=== PATIENT | female | born 1965 | race Caucasian/White ===

== ENCOUNTER 2017-01-12 14:33 | Observation (INO) ==
[2017-01-12] MEDS ORDERED: SALINE FLUSH 10ml SYRINGE IVF PRN (14:56)
--- NOTE | 2017-01-12 14:57 | Emergency Department Report ---
General Adult HPI - General Chief complaint: Abdominal Pain Stated complaint: gallbladder pain,vomiting. Time Seen by Provider: 01/12/17 14:42 Source: patient Mode of arrival: ambulatory Limitations: no limitations - History of Present Illness HPI narrative: 51-year-old female presents to the emergency department with a chief complaint of right upper quadrant abdominal pain. Patient has been experiencing these symptoms for the past several weeks. She describes her pain as mild. Pain is dull. No radiation. She also notes nausea. She notes increase in symptoms with eating. Patient states she is scheduled with Dr. Jona Pires to have her gallbladder out in February but states that she cannot wait that long. She has no other complaints or associated symptoms. Symptoms have been persistent in nature since onset. She denies trauma, travel, poorly prepared food, or recent antibiotic use. - Related Data Home Medications Medication Instructions Recorded Confirmed Acetaminophen [Acetaminophen Extra 1,000 mg PO Q6H PRN 01/12/17 01/12/17 Strength] Furosemide [Lasix] 40 mg PO BID 01/12/17 01/12/17 Metolazone [Zaroxolyn] 5 mg PO MOWEFR 01/12/17 01/12/17 Potassium Chloride 20 meq PO BID 01/12/17 01/12/17 Potassium Chloride 20 meq PO TID 01/12/17 01/12/17 Allergies Allergy/AdvReac Type Severity Reaction Status Date / Time No Known Allergies Allergy Verified 01/12/17 14:37 Review of Systems Constitutional: Denies: fever, chills Eyes: Denies: eye pain, vision change ENT: Denies: ear pain, throat pain Cardiovascular: Denies: chest pain, palpitations Respiratory: Denies: cough, dyspnea Gastrointestinal: Reports: abdominal pain, nausea. Denies: vomiting, diarrhea Genitourinary: Denies: urgency, dysuria Musculoskeletal: Denies: back pain, arthralgia Integumentary: Denies: erythema, rash Neurological: Denies: headache, numbness Psychiatric: Denies: anxiety, depression Endocrine: Denies: fatigue, heat or cold intolerance Hematological/Lymphatic: Denies: easy bleeding, easy bruising Allergic/Immunologic: Denies: facial swelling, urticaria PFSH Patient Stated Medical History Other GI Yes: GALLBLADDER DISEASE Surgical History: Hysterectomy Family History: Reviewed and noncontributory. - Social History Smoking status: Former smoker Substance use type: does not use Alcohol intake frequency: does not drink Physical Exam - Limitations Limitations: no limitations - General General appearance: alert, in no apparent distress - Normal Exams: Head:: Normocephalic without trauma Eyes:: Pupils are PERRLA w/ EOMI, No scleral icterus, irritation, or foreign bodies noted ENMT:: No facial trauma, nasal exudates, pharyngeal erythema, or exudates are noted Dental: No fractured, loose, or missing teeth noted Neck:: Full range of motion, without adenopathy, JVD, bruits or thyromegaly Chest/Respirations:: Clear all medrano, with good airflow, and symmetry bilaterally Cardiovascular:: Regular rate and rhythm, without murmur or gallop, Pulses 2+ all extremities, capillary refill, <2 seconds all extremities Abdomen:: Bowel sounds positive (Soft. Mild RUQ tenderness to palpation. No rebound or guarding. NO CVAT. ), non-distended, no hepatosplenomegaly, masses or bruits noted Lymphatic:: No lymphadenopathy, or lymphedema noted Musculoskeletal:: No tenderness, or deformity noted, good range of motion, all extremities Integumentary:: No rashes, hives, or bruising noted, hair and nails, without abnormality Neurological:: Patient is alert, and oriented, cranial nerves, motor/sensory/ cerebellar, exams w/o gross deficits, to observation Psychiatric:: Patient exhibits, appropriate attention, emotion and affect Course Vital Signs Temperature 98.9 F 01/12/17 14:37 Pulse Rate 92 01/12/17 14:37 Respiratory Rate 19 01/12/17 14:37 Blood Pressure 144/79 H 01/12/17 14:37 Pulse Oximetry 97 01/12/17 14:37 Temperature 98.9 F 01/12/17 14:37 Pulse Rate 90 01/12/17 16:48 Respiratory Rate 19 01/12/17 16:48 Blood Pressure 144/67 H 01/12/17 17:15 Pulse Oximetry 98 01/12/17 16:48 Medical Decision Making - [facility] Narrative Medical decision making narrative: Labs/imaging were discussed in detail with the patient and questions are answered. Patient is given 40 mEq of potassium by mouth times one. Potassium riders are ordered. Patient declines offered analgesic pain medication in the emergency Department. Patient declines offered antiemetic medication in the emergency department. Patient is to be admitted to the service of the hospitalist Dr. Little for severe hypokalemia. Patient is reviewed with Dr. Snyder of general surgery who agrees that the patient has cholelithiasis and not acute cholecystitis. Patient is in agreement with the current plan of management. Patient is admitted to the hospital in improved condition. No further orders from accepting or consulting physicians who were in agreement with the current plan of management. - Differential Diagnosis cholelithiasis, acute cholecystitis, pancreatitis, metabolic disorder - Lab Data Result diagrams: 01/12/17 15:09 01/12/17 15:09 Lab Results 01/12/17 01/12/17 01/12/17 Range/Units 15:09 15:09 15:09 WBC 5.4 (4.5-11.0) T/MM3 RBC 5.07 (4.00-5.20) M/MM3 Hgb 14.0 (12-16) GM/DL Hct 42.7 (36-46) % MCV 84.2 (80-100) UM3 MCH 27.6 (26-34) UUG MCHC 32.8 (31-37) GM/DL RDW Std Deviation 43.8 (36.9-50.2) FL Plt Count 231 (130-400) T/MM3 MPV 10.8 (9.4-12.4) UM3 Immature Gran % (Auto) 0.4 (0.0-0.5) % Neut % (Auto) 65.6 (33-66) % Lymph % (Auto) 23.7 (23-45) % [place] % (Auto) 9.0 (0-9.0) % Eos % (Auto) 0.7 (0-4) % Baso % (Auto) 0.6 (0-2) % Neut # (Auto) 3.5 (1.8-7.7) T/MM3 Lymph # (Auto) 1.3 (1-4.8) T/MM3 [place] # (Auto) 0.5 (0-0.8) T/MM3 Eos # (Auto) 0.0 (0-0.5) T/MM3 Baso # (Auto) 0.0 (0-0.2) T/MM3 Abs Immat Gran (auto) 0.02 (0.00-0.03) T/MM3 Turbidity < 20 (0-20) Sodium 138 (134-144) MEQ/L Potassium 2.4 L* (3.6-5) MEQ/L Chloride 87 L (98-107) MEQ/L Carbon Dioxide 41 H* (22-30) MEQ/L Anion Gap 10 (5-15) MEQ/L BUN 12.0 (7-17) MG/DL Creatinine 0.9 (0.7-1.2) MG/DL GFR Calculation 66 BUN/Creatinine Ratio 13 (6-26) RATIO Glucose 131 H (65-110) MG/DL Calculated Osmolality 268 (261-280) MOSM/KG Calcium 9.5 (8.4-10.2) MG/DL Total Bilirubin 0.50 (0.20-1.30) MG/DL Icterus Index < 2 (0-7) AST 36 (14-36) U/L ALT 70 H (9-52) U/L Alkaline Phosphatase 86 (38-126) U/L Troponin I (0-0.12) ng/ml Total Protein 7.8 (6.3-8.2) G/DL Albumin 4.0 (3.5-5.0) G/DL Globulin 3.8 H (2.4-3.6) G/DL Albumin/Globulin Ratio 1.1 (1.1-2.2) RATIO Lipase 127 (23-300) U/L Specimen Hemolysis < 15 (0-25) Ur Collection Type Urine, clean catch Urine Color Yellow (YELLOW) Urine Clarity Clear Urine pH 6.5 (5.0-8.0) Ur Specific [place] 1.010 L (1.015-1.025) Urine Protein Negative (NEGATIVE) Urine Glucose (UA) Negative (NEGATIVE) Urine Ketones Negative (NEGATIVE) Urine Occult Blood Negative (NEGATIVE) Urine Nitrate Negative (NEGATIVE) Urine Bilirubin Negative (NEGATIVE) Urine Urobilinogen 0.2 (NORMAL) EU/DL Ur Leukocyte Esterase Negative (NEGATIVE) Urinalysis Comment Microscopic not ind. 01/12/17 Range/Units 15:09 WBC (4.5-11.0) T/MM3 RBC (4.00-5.20) M/MM3 Hgb (12-16) GM/DL Hct (36-46) % MCV (80-100) UM3 MCH (26-34) UUG MCHC (31-37) GM/DL RDW Std Deviation (36.9-50.2) FL Plt Count (130-400) T/MM3 MPV (9.4-12.4) UM3 Immature Gran % (Auto) (0.0-0.5) % Neut % (Auto) (33-66) % Lymph % (Auto) (23-45) % [place] % (Auto) (0-9.0) % Eos % (Auto) (0-4) % Baso % (Auto) (0-2) % Neut # (Auto) (1.8-7.7) T/MM3 Lymph # (Auto) (1-4.8) T/MM3 [place] # (Auto) (0-0.8) T/MM3 Eos # (Auto) (0-0.5) T/MM3 Baso # (Auto) (0-0.2) T/MM3 Abs Immat Gran (auto) (0.00-0.03) T/MM3 Turbidity (0-20) Sodium (134-144) MEQ/L Potassium (3.6-5) MEQ/L Chloride (98-107) MEQ/L Carbon Dioxide (22-30) MEQ/L Anion Gap (5-15) MEQ/L BUN (7-17) MG/DL Creatinine (0.7-1.2) MG/DL GFR Calculation BUN/Creatinine Ratio (6-26) RATIO Glucose (65-110) MG/DL Calculated Osmolality (261-280) MOSM/KG Calcium (8.4-10.2) MG/DL Total Bilirubin (0.20-1.30) MG/DL Icterus Index (0-7) AST (14-36) U/L ALT (9-52) U/L Alkaline Phosphatase (38-126) U/L Troponin I < 0.012 (0-0.12) ng/ml Total Protein (6.3-8.2) G/DL Albumin (3.5-5.0) G/DL Globulin (2.4-3.6) G/DL Albumin/Globulin Ratio (1.1-2.2) RATIO Lipase (23-300) U/L Specimen Hemolysis < 15 (0-25) Ur Collection Type Urine Color (YELLOW) Urine Clarity Urine pH (5.0-8.0) Ur Specific [place] (1.015-1.025) Urine Protein (NEGATIVE) Urine Glucose (UA) (NEGATIVE) Urine Ketones (NEGATIVE) Urine Occult Blood (NEGATIVE) Urine Nitrate (NEGATIVE) Urine Bilirubin (NEGATIVE) Urine Urobilinogen (NORMAL) EU/DL Ur Leukocyte Esterase (NEGATIVE) Urinalysis Comment - Radiology Data RUQ Ultrasound - cholelithiasis otherwise unremarkable examination. - EKG Data EKG #1 EKG results narrative: Sinus rhythm. 84 bpm. No STEMI. Disposition Clinical Impression: Hypokalemia Cholelithiasis Qualifiers: Cholelithiasis location: gallbladder Cholecystitis acuity: chronic Biliary obstruction: without biliary obstruction Disposition: 02 To [facility] Condition: Improved Prescriptions: No Action Potassium Chloride 20 meq PO TID Potassium Chloride 20 meq PO BID Metolazone [Zaroxolyn] 5 mg PO MOWEFR Furosemide [Lasix] 40 mg PO BID Acetaminophen [Acetaminophen Extra Strength] 1,000 mg PO Q6H PRN PRN Reason: Pain Referrals: Andrew Richardson MD [Physician] - Time of Disposition: 17:00 (Admit. Dr. Little. ) - Seen By: physician
--- OUTSIDE RECORDS SUMMARY | 2017-01-12 15:08 | External Medical Summary ---
:1965 Author Organization [employer] Care Team Providers Name Role Phone Andrew Richardson Provider Role Unavailable Allergies No Known Allergies Problems Problem Type Condition ICD-9 Code Onset Dates Condition Status Problem Unspecified acute nonsuppurative 381.00 Active otitis media Problem Acute pharyngitis 462 Active Problem Hyperpotassemia 276.7 Active Problem Asymptomatic postmenopausal V49.81 Active status (age-related) (natural) Problem Need for prophylactic V04.81 Active vaccination and inoculation, Influenza Problem Swelling of limb 729.81 Active Problem Morbid obesity 278.01 Active Medications No Known Medications Results No Known Results Summary Purpose eClinicalWorks Submission
--- OUTSIDE RECORDS SUMMARY | 2017-01-12 15:08 | External Medical Summary | Referral Summary ---
:1965 Author Organization [facility] [place] Address [address] [place] [address] Care Team Providers Name Role Phone Andrew Richardson Primary Care Physician Encounter VC Date(s): 07/20/14 - 07/20/14 [facility] [place] [address] [place] [address]- [phone] Discharge Diagnosis: STEFFEN on CPAP Discharge Disposition: 01-Home or Self Care Attending Physician: Tony Woods MD Admitting Physician: Tony Woods MD Vital Signs Most recent to oldest [Reference Range]: 1 Peripheral Pulse Rate [60-100 bpm] 76 bpm (07/20/14 10:46 AM) Blood Pressure [90-140/60-90 mmHg] 126/71 mmHg (07/20/14 10:46 AM) Problem List Condition Effective Dates Status Health Status Informant Morbid obesity(Confirmed) Active patient Tobacco user(Confirmed) Active patient Unspecified urinary Active patient incontinence(Confirmed) Allergies, Adverse Reactions, Alerts No Known Medication Allergies Medications Flonase 50 mcg/inh nasal spray 1 sprays, Nasal, BID, # 16 g, 0 Refill(s), Pharmacy: [facility] #[id number] Start Date: 05/23/14 Status: OrderedLasix 20 mg oral tablet 1 tabs, Oral, Daily, # 30 tabs, 0 Refill(s) Start Date: 05/23/14 Status: Ordered Results No data available for this section Immunizations No data available for this section Procedures No data available for this section Social History Social History Type Response Smoking Status Current every day smoker Assessment and Plan Extracted from: Title: CPAP FAX Author: Yane Britton MICROFILM TECHNICIAN Date: 06/20/14 CPAP order faxed to [facility].
--- OUTSIDE RECORDS SUMMARY | 2017-01-12 15:08 | External Medical Summary | Referral Summary ---
:1965 Author Organization [facility] [place] Address [address] [place] [address] Care Team Providers Name Role Phone Andrew Richardson Primary Care Physician Encounter VC Date(s): 07/20/14 - 07/20/14 [facility] [place] [address] [place] [address]- [phone] Discharge Diagnosis: STEFFEN on CPAP Discharge Disposition: [...] BID, # 16 g, 0 Refill(s), Pharmacy: [facility] #[id number] Start Date: 05/23/14 Status: OrderedLasix 20 mg [...] from: Title: CPAP FAX Author: Yane Britton QC ANALYST Date: 4/29/15 CPAP order faxed to [facility].
--- OUTSIDE RECORDS SUMMARY | 2017-01-12 15:09 | External Medical Summary | Referral Summary ---
:1965 Author Organization [facility] Address [address] [place] [address] Care Team Providers Name Role Phone Andrew Richardson Primary Care Physician Encounter VC Date(s): 07/20/14 - 07/20/14 [facility] [place] [address] [place] [address]- [phone] Discharge Diagnosis: STEFFEN on CPAP Discharge Disposition: [...] BID, # 16 g, 0 Refill(s), Pharmacy: [facility] #[id number] Start Date: 05/23/14 Status: OrderedLasix 20 mg [...] from: Title: CPAP FAX Author: Yane Britton DIRECTOR OF CARDIAC CATH LAB Date: 06/20/14 CPAP order faxed to [facility].
--- OUTSIDE RECORDS SUMMARY | 2017-01-12 15:09 | External Medical Summary ---
:1965 Author Organization [employer] Care Team Providers Name Role Phone Andrew Richardson Provider Role Unavailable Allergies, Adverse Reactions, Alerts Substance Reaction Event Type N.K.D.A. Info Not Available Non Drug Allergy Problems Problem Type Condition ICD-9 Code Onset Dates Condition Status Assessment Malodorous urine 791.9 Active Assessment Sleep apnea 780.57 Active Problem Unspecified acute nonsuppurative 381.00 Active otitis media Problem Acute pharyngitis 462 Active Problem Hyperpotassemia 276.7 Active Problem Asymptomatic postmenopausal V49.81 Active status (age-related) (natural) Problem Need for prophylactic V04.81 Active vaccination and inoculation, Influenza Problem Swelling of limb 729.81 Active Problem Morbid obesity 278.01 Active Medications Medication Code Code Instructions Start End Date Status Dosage System Date Lasix NDC 70326676823 40 TAKE ONE TABLET BY MOUTH TWICE A DAY Potassium NDC 0 10 mEq Oct 31, Feb 21 capsule Chloride 20129 by Oral route 2 times per day Procedures Procedure Coding System Code Date OFFICE VISIT EST PATIENT LEVEL 3 CPT-4 17423 Mar 27, 2014 Vital Signs Date/Time: Mar 27, 2014 BMI 53.68 Index Weight 332.6 lbs Height 66 in Blood Pressure Diastolic 70 mm Hg Blood Pressure Systolic 156 mm Hg Cardiac Monitoring Heart Rate 88 /min Temperature 98.5 F Respiratory Rate 22 /min Results No Known Results Summary Purpose eClinicalWorks Submission
--- OUTSIDE RECORDS SUMMARY | 2017-01-12 15:09 | External Medical Summary | Continuity of Care Document ---
:1965 Author Organization [facility] Allergies Medications Problems Procedures Results Encounters ACCT Visit Discharge Status Pt. Type Provider Facility Loc./Unit Complaint No. Date/Time DARREL 02/08/2015 02/08/2015 CLS Outpatient [id number] 14:52:00 23:59:59
--- OUTSIDE RECORDS SUMMARY | 2017-01-12 15:09 | External Medical Summary ---
:1965 Author Organization [employer]Clinical[employer] Care Team Providers Name Role Phone Andrew Richardson Provider Role Unavailable Allergies No Known Allergies Problems Problem Type Condition ICD-9 Code Onset Dates Condition Status Assessment Malodorous urine 791.9 Active Problem Unspecified acute nonsuppurative 381.00 Active otitis media Problem Acute pharyngitis 462 Active Problem Hyperpotassemia 276.7 Active Problem Asymptomatic postmenopausal V49.81 Active status (age-related) (natural) Problem Need for prophylactic V04.81 Active vaccination and inoculation, Influenza Problem Swelling of limb 729.81 Active Problem Morbid obesity 278.01 Active Medications Medication Code Code Instructions Start End Date Status Dosage System Date Lasix NDC 88520417821 40 TAKE ONE TABLET BY MOUTH TWICE A DAY Potassium NDC 0 10 mEq Oct 31, Feb 21 capsule Chloride 2012 9999 by Oral route 2 times per day Procedures Procedure Coding System Code Date URINALYSIS NONAUTO WO SCOPE CPT-4 18296 Mar 28, 2014 Results No Known Results Summary Purpose eClinicalWorks Submission
--- OUTSIDE RECORDS SUMMARY | 2017-01-12 15:09 | External Medical Summary | Referral Summary ---
:1965 Author Organization [facility] [place] Address [address] [place] [address] Care Team Providers Name Role Phone Dylan Andrew Amos Primary Care Physician Encounter VC Date(s): 07/02/14 - 07/02/14 [facility] [place] [address] [place] [address]- [phone] Discharge Disposition: 01-Home or Self Care Attending Physician: Tony Woods MD Vital Signs No data available for this section Problem List Condition Effective Dates Status Health Status Informant Morbid obesity(Confirmed) Active patient Tobacco user(Confirmed) Active patient Unspecified urinary Active patient incontinence(Confirmed) Allergies, Adverse Reactions, Alerts No Known Medication Allergies Medications Flonase 50 mcg/inh nasal spray 1 sprays, Nasal, BID, # 16 g, 0 Refill(s), Pharmacy: [facility] #[id number] Start Date: 05/23/14 Status: OrderedLasix 20 mg oral tablet 1 tabs, Oral, Daily, # 30 tabs, 0 Refill(s) Start Date: 05/23/14 Status: Ordered Results No data available for this section Immunizations No data available for this section Procedures No data available for this section Social History Social History Type Response Smoking Status Current every day smoker Assessment and Plan No data available for this section
--- OUTSIDE RECORDS SUMMARY | 2017-01-12 15:09 | External Medical Summary | Referral Summary ---
:1965 Author Organization [facility] [place] Address [address] [place] [address] Care Team Providers Name Role Phone Grayson Richardsonory Amos Primary Care Physician Encounter [facility] [id number] Date(s): 06/28/14 - 06/28/14 [facility] [place] [address] [place] [address]- [phone] Discharge Disposition: 01-Home or Self Care Attending Physician: Tony Woods MD Admitting Physician: Tony Woods MD Vital Signs No data available for this section Problem List Condition Effective Dates Status Health Status Informant Morbid obesity(Confirmed) Active patient Tobacco user(Confirmed) Active patient Unspecified urinary Active patient incontinence(Confirmed) Allergies, Adverse Reactions, Alerts No Known Medication Allergies Medications Flonase 50 mcg/inh nasal spray 1 sprays, Nasal, BID, # 16 g, 0 Refill(s), Pharmacy: [email or web address] #[id number] Start Date: 05/23/14 Status: OrderedLasix 20 mg oral tablet 1 tabs, Oral, Daily, # 30 tabs, 0 Refill(s) Start Date: 05/23/14 Status: Ordered Results No data available for this section Immunizations No data available for this section Procedures No data available for this section Social History Social History Type Response Smoking Status Current every day smoker Assessment and Plan Extracted from: Title: CPAP SETUP Author: Melinda Barton DITCH DIGGER Date: 06/28/14 New setup @ 5-20cm per Dr. Woods / Eson:ajit, [place] [employer]. S10 [employer] cpap.
--- OUTSIDE RECORDS SUMMARY | 2017-01-12 15:09 | External Medical Summary | Referral Summary ---
:1965 Author Organization [facility] [place] Address [address] [place] [address] Care Team Providers Name Role Phone Andrew Richardson Primary Care Physician Encounter VC Date(s): 06/28/14 - 06/28/14 [facility] [place] [address] [place] [address]- [phone] Discharge Disposition: 01-Home or Self Care Attending Physician: Facility Fee, [facility] Admitting Physician: Facility Fee, [facility] Vital Signs No data available for this section Problem List Condition Effective Dates Status Health Status Informant Morbid obesity(Confirmed) Active patient Tobacco user(Confirmed) Active patient Unspecified urinary Active patient incontinence(Confirmed) Allergies, Adverse Reactions, Alerts No Known Medication Allergies Medications Flonase 50 mcg/inh nasal spray 1 sprays, Nasal, BID, # 16 g, 0 Refill(s), Pharmacy: [facility] #[id number] Start Date: 05/23/14 Status: OrderedLasix 20 mg [...]
--- OUTSIDE RECORDS SUMMARY | 2017-01-12 15:09 | External Medical Summary | Referral Summary ---
:1965 Author Care Team Providers Name Role Phone Andrew Richardson Primary Care Physician Encounter VC [facility] [id number] Date(s): 06/14/14 - 06/14/14 [facility] [place] [id number] [place], [place] [phone] Discharge Disposition: Home or Self Care Attending Physician: Tony Woods MD Admitting Physician: Tony Woods MD Vital Signs No data available for this section Problem List Condition Effective Dates Status Health Status Informant Morbid obesity(Confirmed) Active patient Tobacco user(Confirmed) Active patient Allergies, Adverse Reactions, Alerts No Known Medication Allergies Medications Flonase 50 mcg/inh nasal spray 1 sprays, Nasal, BID, # 16 g, 0 Refill(s), Pharmacy: [facility] #[id number] Start Date: 05/23/14 Status: OrderedLasix 20 mg [...]
--- OUTSIDE RECORDS SUMMARY | 2017-01-12 15:09 | External Medical Summary | Referral Summary ---
:1965 Author Organization [facility] [place] Address [address] [place] [address] Care Team Providers Name Role Phone Andrew Richardson Primary Care Physician Encounter VC Date(s): 07/20/14 - 07/20/14 [facility] [place] [address] [place] [address]- [phone] Discharge Diagnosis: STEFFEN on CPAP Discharge Disposition: [...] BID, # 16 g, 0 Refill(s), Pharmacy: [facility] #[id number] Start Date: 05/23/14 Status: OrderedLasix 20 mg [...] from: Title: CPAP FAX Author: Yane Britton EARTH BORING MACHINE OPERATOR Date: 4/29/15 CPAP order faxed to [place] [facility].
--- NOTE | 2017-01-12 16:22 | Ultrasound Report ---
Indication: RUQ PAIN PROCEDURE: US gall bladder: Encounter: Initial Comparison: None Technique: Grayscale and color Doppler sonographic imaging of the right upper quadrant of the abdomen was performed. Findings: Hepatic parenchyma is echogenic and sonographically dense without evidence for focal mass. The gallbladder shows multiple large shadowing gallstones. Normal gallbladder wall thickness under 3 mm. Sonographic Li sign was reportedly positive. Both the intra and extrahepatic biliary system are of normal caliber with the common duct measuring 6 mm in dimension. Visualized portions of the head and body of the pancreas are unremarkable. The right kidney is present without collecting system dilatation. The right kidney measures 12.1 cm in length. Impression: 1. Cholelithiasis with a positive sonographic Li's sign is compatible with acute cholecystitis in the appropriate clinical setting. Surgical consultation is recommended. 2. Hepatic steatosis. .
--- NOTE | 2017-01-12 17:48 | History & Physical Report ---
History of Present Illness Date: 01/12/17 Chief complaint: RUQ abdominal pain and nausea HPI: Carline is a 51 yr old female with known gallbladder disease. She is scheduled with Dr Jona Pires surgeon in [place] cholecystectomy in February. She reports over the last 2 weeks she has had increasing abdominal pain with nausea and decreased oral intake. She felt like she had been constipated, however. Bowels started to move more regularly the last 2 days. She reports she works in [employer] at [employer] and lives in [place] and stopped at [facility] emergency room today for acute evaluation given her increased pain. She has been under the primary care of Shannon BORJA with [facility] , and project crew worker, Dr. Holt. Today, acute evaluation and treatment was performed in the emergency room. Gallbladder sonogram did reveal cholelithiasis with a positive folder operator Li sign, compatible with acute Pepper cystitis along with hepatic steatosis grade CBC was normal. However, patient was found to have hypokalemia with a potassium of 2.4, sodium 138, chloride 87, and CO2 41. Renal function is normal , glucose 131. Troponin negative. Urinalysis unremarkable. Upon further discussion, patient was recently placed on a 2nd diuretic. She reports she takes Zaroxolyn 5 milligrams 3 times a week on Wednesday, Wednesday, Wednesday. She also takes Lasix 40 milligrams twice a day on the remaining days of the week. She is currently only taking potassium 20 milliequivalents twice a day on Sundays, Tuesdays, and Saturdays and potassium 20 milliequivalents 3 times a day on Mondays, Wednesdays and Fridays. Giving findings of acute hypokalemia Hospital services were contacted and accepted patient for outpatient observation admission for further evaluation and treatment. We did discuss advanced directives. Patient does wish to be a full code Review of Systems All systems PM: 10-point ROS was reviewed, no additional remarkable complaints except - Gastrointestinal Gastrointestinal: Present: as per HPI, abdominal pain (RUQ), nausea, vomiting PFSH Peripheral edema Morbid obesity Former tobacco dependence, quit 08/2016 Patient denies having any chronic medical conditions however is on Lasix and Zaroxolyn chronically Surgical History: Hysterectomy - Social History Smoking status: Former smoker (quit august 2016) Substance use type: does not use Alcohol intake frequency: does not drink Current residence: Apartment/Private Home Social history: Resides in [place], [place] Works in [place], [place] 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 Holt Medications Home Medications Medication Instructions Recorded Confirmed Type Acetaminophen [Acetaminophen Extra 1,000 mg PO Q6H PRN 01/12/17 01/12/17 History Strength] Furosemide [Lasix] 40 mg PO BID 01/12/17 01/12/17 History Metolazone [Zaroxolyn] 5 mg PO MOWEFR 01/12/17 01/12/17 History Potassium Chloride 20 meq PO BID 01/12/17 01/12/17 History Potassium Chloride 20 meq PO TID 01/12/17 01/12/17 History Allergies Allergy/AdvReac Type Severity Reaction Status Date / Time No Known Allergies Allergy Verified 01/12/17 14:37 Exam Vital Signs: Temperature 98.9 F 01/12/17 14:37 Pulse Rate 90 01/12/17 16:48 Respiratory Rate 19 01/12/17 16:48 Blood Pressure 144/67 H 01/12/17 17:15 Pulse Oximetry 98 01/12/17 16:48 - Constitutional Present: no acute distress, well nourished, well developed - Routine HEENT Exam Eye: Present: EOMI, PERRL ENT: Present: mucous membranes moist, dentition normal - Routine Respiratory Exam Present: CTA bilaterally. Absent: wheezes - Routine Cardiovascular Exam Present: RRR, S1, S2. Absent: murmur - Routine Abdominal Exam Present: soft, normoactive bowel sounds, tenderness (ruq). Absent: non distended - Routine Extremities Exam Present: edema (bilateral lower ext), full ROM - Routine Skin Exam Present: intact, dry, warm - Routine Neurological Exam Present: alert, oriented X3, CN II-XII intact - Routine Psychiatric Exam Present: normal affect, cooperative - Additional findings Additional findings: Kevin Lungs: distant, no distress on RA. CV: distant MSE: awake alert appropriate Results - Labs CBC & Chem 7: 01/12/17 15:09 01/12/17 15:09 Assessment and Plan (1) Hypokalemia Current visit: Yes Status: Acute (2) Cholelithiasis Current visit: Yes Status: Acute (3) Morbid obesity with BMI of 60.0-69.9, adult Current visit: Yes Status: Acute Assessment and Plan: Impression Hypokalemia- POA- K 2.4 Cholelithiasis- Chronic Chronic Peripheral Edema STEFFEN treated with CPAP Morbid obesity- BMI- 64. Former tobacco dependence Plan Admit patient to outpatient observation under the care of Dr. Brown for hypokalemia. She was given 40 milliequivalents of oral potassium in the emergency room as well as IV potassium boluses initiated. We will recheck a potassium at 2200 this evening after bolus completed. Increase potassium to 40 MEQ TID scheduled during hospitalization. Magnesium obtained on admission is normal at 2.1; recheck in am. Monitor patient on cardiac telemetry secondary to IV potassium infusion. Patient may have regular diet. Zofran available as needed for nausea. SCD to bilateral lower ext for DVT prophylaxis. Recheck BMP and magnesium in am. She is a full code and this order is written. At time of discharge medical care will return to PCP at [facility]- Shannon Hodges- HUONG Brown 01/12/171914 Have independently interviewed & examined pt. Chart reviewed. Case discussed with ED physician and my CHIP FRIER. Care plan developed with my supervision; agree with above. Presents to ED for evaluation of ab pain. Has had significant problems with her GB-Sx scheduled in Feb 2017. Nausea the past several day. Not able to eat due to increased pain and nausea with eating. Some emesis. No diarrhea. Notes SOA, increasing since stopped smoking this summer. Not having increased cough or congestion. Evaluated in ED-potassium low at 2.4; recently started metolazone. Place in OBS for correction of hypokalemia. DVT Prophylaxis: SCD's Resuscitation Status: Full Code Hospital Course Summary Disclaimer: The visit summary below is not to be considered part of the above Progress Note. Hospital Course: 01/12/17- admission Impression Hypokalemia- POA- K 2.4 Cholelithiasis- Chronic Chronic Peripheral Edema Morbid obesity- BMI- 64. Former tobacco dependence Plan Admit patient to outpatient observation under the care of Dr. Brown for hypokalemia. She was given 40 milliequivalents of oral potassium in the emergency room as well as IV potassium boluses initiated. We will recheck a potassium at 2200 this evening. Will continue with 20 MEQ TID scheduled. Monitor patient on cardiac telemetry Patient may have regular diet Magnesium obtained on admission is normal at 2.1 Zofran available as needed for nausea NS at 100 ML/hr for gentle hydration SCD to bilateral lower ext for DVT prophylaxis She is a full code and this order is written. Discuss further orders and plan of care with attending, Dr Brown At time of discharge medical care will return to PCP at [facility]- Shannon BORJA
[2017-01-12] MEDS ORDERED: ONDANSETRON 4 MG/2 ML INJECTION IVP PRN (17:49)
[2017-01-12] MEDS: LIDOCAINE 1% INJ 10 MG, POTASSIUM CHLORIDE INJ 10 MEQ in NS 100 ML IV SCH ×4 (18:11→22:24)
[2017-01-12 18:36] VITALS: BMI 64.2
[2017-01-12] MEDS ORDERED: ACETAMINOPHEN 500 MG TABLET PO PRN (19:21)
[2017-01-12] MEDS: FUROSEMIDE 40 MG TABLET PO SCH (20:33)
[2017-01-12] MEDS: ACETAMINOPHEN 500 MG TABLET PO PRN (20:34)
[2017-01-13] MEDS: ACETAMINOPHEN 500 MG TABLET PO PRN ×2 (06:13→14:14)
[2017-01-13] MEDS: FUROSEMIDE 40 MG TABLET PO SCH (09:21)
[2017-01-13] MEDS: LIDOCAINE 1% INJ 10 MG, POTASSIUM CHLORIDE INJ 10 MEQ in NS 100 ML IV SCH ×4 (10:58→16:11)
[2017-01-13] MEDS ORDERED: SPIRONOLACTONE 50 MG TABLET PO ONE (14:00)
--- NOTE | 2017-01-13 16:23 | Progress Note ---
- Date 01/13/17 Subjective: F/U: Hypokalemia Doing better this afternoon. Has been able to eat and keep food in. Not having the ab pain and nausea as prior to presentation. Does note low back pain. Breathing well. Urinating well. Objective Vital signs: Temperature 96.7 F L 01/13/17 07:50 Pulse Rate 72 01/13/17 07:50 Respiratory Rate 20 01/13/17 07:50 Blood Pressure 121/70 01/13/17 07:50 Pulse Oximetry 94 01/13/17 07:50 Height/Weight/BMI: Height 1.65 m Weight 175.2 kg Body Mass Index 64.2 - Constitutional Present: well nourished, well developed, morbidly obese, cooperative - Routine HEENT Exam Head: Present: normocephalic, atraumatic Eye: Present: EOMI, PERRL ENT: Present: mucous membranes moist - Routine Respiratory Exam Present: decreased breath sounds. Absent: respiratory distress, wheezes, crackles - Routine Cardiovascular Exam Present: RRR, murmur - Routine Abdominal Exam Present: soft, normoactive bowel sounds, non distended, non tender - Routine Extremities Exam Absent: cyanosis, clubbing - Routine Musculoskeletal Exam Musculoskeletal: Present: no clubbing or cyanosis, normal strength - Routine Skin Exam Present: dry, warm - Routine Neurological Exam Present: alert, oriented X3, CN II-XII intact, moving all extremities, normal speech. Absent: motor deficit, altered mental status - Routine Psychiatric Exam Present: normal affect, normal thought process, cooperative. Absent: anxious, agitated Results - Labs CBC & Chem 7: 01/13/17 04:14 01/13/17 04:14 Assessment and Plan (1) Hypokalemia Current visit: Yes Status: Acute (2) Cholelithiasis Current visit: Yes Status: Acute (3) Morbid obesity with BMI of 60.0-69.9, adult Current visit: Yes Status: Acute Assessment and Plan: Impression Hypokalemia- POA- K 2.4 Cholelithiasis- Chronic Chronic Peripheral Edema STEFFEN treated with CPAP Morbid obesity- BMI- 64. Former tobacco dependence Plan Admit patient to outpatient observation under the care of Dr. Brown for hypokalemia. She was given 40 milliequivalents of oral potassium in the emergency room as well as IV potassium boluses initiated. We will recheck a potassium at 2200 this evening after bolus completed. Increase potassium to 40 MEQ TID scheduled during hospitalization. Magnesium obtained on admission is normal at 2.1; recheck in am. Monitor patient on cardiac telemetry secondary to IV potassium infusion. Patient may have regular diet. Zofran available as needed for nausea. SCD to bilateral lower ext for DVT prophylaxis. Recheck BMP and magnesium in am. She is a full code and this order is written. At time of discharge medical care will return to PCP at [facility] Nausea and ab pain resolved. Able to eat well without problems. Potassium recheck this am was 2.8. Repeat IV boluses given and patient given 50mg oral spironolactone. Recheck BMP pending. Hope for discharge today if potassium showing improvement. DVT Prophylaxis: SCD's Resuscitation Status: Full Code Hospital Course Summary Disclaimer: The visit summary below is not to be considered part of the above Progress Note. Hospital Course: 01/12/17- admission Impression Hypokalemia- POA- K 2.4 Cholelithiasis- Chronic Chronic Peripheral Edema STEFFEN treated with CPAP Morbid obesity- BMI- 64. Former tobacco dependence Plan Admit patient to outpatient observation under the care of Dr. Brown for hypokalemia. She was given 40 milliequivalents of oral potassium in the emergency room as well as IV potassium boluses initiated. We will recheck a potassium at 2200 this evening after bolus completed. Increase potassium to 40 MEQ TID scheduled during hospitalization. Magnesium obtained on admission is normal at 2.1; recheck in am. Monitor patient on cardiac telemetry secondary to IV potassium infusion. Patient may have regular diet. Zofran available as needed for nausea. SCD to bilateral lower ext for DVT prophylaxis. Recheck BMP and magnesium in am. She is a full code and this order is written. At time of discharge medical care will return to PCP at [facility] Shannon BORJA 01/13/17 Nausea and ab pain resolved. Able to eat well without problems. Potassium recheck this am was 2.8. Repeat IV boluses given and patient given 50mg oral spironolactone. Recheck BMP pending. Hope for discharge today if potassium showing improvement.
[2017-01-13 17:25] VITALS: BP 118/74; PULSE 90; RESP 16; TEMP 99.5
[2017-01-13 17:42] VITALS: O2SAT 94
--- NOTE | 2017-01-13 18:08 | Discharge Summary ---
Discharge Information Date of admission: 01/12/17 17:30 Anticipated date of discharge: 01/13/17 Attending Physician: Homar Brown MD Primary care physician: Shannon Mathew - Discharge Diagnosis (1) Hypokalemia Status: Acute (2) Cholelithiasis Status: Acute (3) Morbid obesity with BMI of 60.0-69.9, adult Status: Acute Discharge diagnosis Hypokalemia- POA- K 2.4 Associated conditions and complications Cholelithiasis- Chronic Chronic Peripheral Edema STEFFEN treated with CPAP Morbid obesity- BMI- 64. Former tobacco dependence - Laboratory Labs: Admit Lab 01/12/17 15:09 WBC 5.4 Hgb 14.0 Hct 42.7 MCV 84.2 Plt Count 231 Neut % (Auto) 65.6 Lymph % (Auto) 23.7 [place] % (Auto) 9.0 Eos % (Auto) 0.7 Admit Lab 01/12/17 01/12/17 15:09 15:40 Sodium 138 Potassium 2.4 L* Chloride 87 L Carbon Dioxide 41 H* Anion Gap 10 BUN 12.0 Creatinine 0.9 GFR Calculation 66 BUN/Creatinine Ratio 13 Glucose 131 H Calculated Osmolality 268 Calcium 9.5 Magnesium 2.1 Total Bilirubin 0.50 AST 36 ALT 70 H Alkaline Phosphatase 86 Total Protein 7.8 Albumin 4.0 Globulin 3.8 H Lipase 127 01/13/17 04:14 01/13/17 17:30 - Radiology Radiology: Date of Exam: 01/12/17 PROCEDURE: US gall bladder Findings: Hepatic parenchyma is echogenic and sonographically dense without evidence for focal mass. The gallbladder shows multiple large shadowing gallstones. Normal gallbladder wall thickness under 3 mm. Sonographic Li sign was reportedly positive. Both the intra and extrahepatic biliary system are of normal caliber with the common duct measuring 6 mm in dimension. Visualized portions of the head and body of the pancreas are unremarkable. The right kidney is present without collecting system dilatation. The right kidney measures 12.1 cm in length. Impression: 1. Cholelithiasis with a positive sonographic Li's sign is compatible with acute cholecystitis in the appropriate clinical setting. Surgical consultation is recommended. 2. Hepatic steatosis. History of Present Illness HPI: Carline is a 51 yr old female with known gallbladder disease. She is scheduled with Dr Jona Pires surgeon in [place] cholecystectomy in February. She reports over the last 2 weeks she has had increasing abdominal pain with nausea and decreased oral intake. She felt like she had been constipated, however. Bowels started to move more regularly the last 2 days. She reports she works in [place] at [employer] and lives in [place] and stopped at [facility] emergency room today for acute evaluation given her increased pain. She has been under the primary care of Shannon BORJA with [facility] , and tool drawing checker, Dr. Holt. Today, acute evaluation and treatment was performed in the emergency room. Gallbladder sonogram did reveal cholelithiasis with a positive staffing clerk Li sign, compatible with acute Pepper cystitis along with hepatic steatosis grade CBC was normal. However, patient was found to have hypokalemia with a potassium of 2.4, sodium 138, chloride 87, and CO2 41. Renal function is normal , glucose 131. Troponin negative. Urinalysis unremarkable. Upon further discussion, patient was recently placed on a 2nd diuretic. She reports she takes Zaroxolyn 5 milligrams 3 times a week on Wednesday, Wednesday, Wednesday. She also takes Lasix 40 milligrams twice a day on the remaining days of the week. She is currently only taking potassium 20 milliequivalents twice a day on Sundays, Tuesdays, and Saturdays and potassium 20 milliequivalents 3 times a day on Mondays, Wednesdays and Fridays. Giving findings of acute hypokalemia Hospital services were contacted and accepted patient for outpatient observation admission for further evaluation and treatment. We did discuss advanced directives. Patient does wish to be a full code For complete details of the H&P refer to that document. Objective Vital signs: Temperature 99.5 F 01/13/17 16:00 Pulse Rate 90 01/13/17 16:00 Respiratory Rate 16 01/13/17 16:00 Blood Pressure 118/74 01/13/17 16:00 Pulse Oximetry 94 01/13/17 16:00 Height/Weight/BMI: Height 1.65 m Weight 175.2 kg Body Mass Index 64.2 Hospital Course This is a general summary of the patient's hospital course. For more details refer to the complete medical record. Hospital course: 01/12/17- admission Impression Hypokalemia- POA- K 2.4 Cholelithiasis- Chronic Chronic Peripheral Edema STEFFEN treated with CPAP Morbid obesity- BMI- 64. Former tobacco dependence Plan Admit patient to outpatient observation under the care of Dr. Brown for hypokalemia. She was given 40 milliequivalents of oral potassium in the emergency room as well as IV potassium boluses initiated. We will recheck a potassium at 2200 this evening after bolus completed. Increase potassium to 40 MEQ TID scheduled during hospitalization. Magnesium obtained on admission is normal at 2.1; recheck in am. Monitor patient on cardiac telemetry secondary to IV potassium infusion. Patient may have regular diet. Zofran available as needed for nausea. SCD to bilateral lower ext for DVT prophylaxis. Recheck BMP and magnesium in am. She is a full code and this order is written. At time of discharge medical care will return to PCP at [facility]- Shannon Hodges- HUONG 01/13/17 Nausea and ab pain resolved. Able to eat well without problems. Potassium recheck this am was 2.8. Repeat IV boluses given and patient given 50mg oral spironolactone. Recheck potassium shows improvement to 3.0. Will discharge home on her chronic medications. Add spironolactone 50mg daily to help preserve potassium. F/U with PCP in 1 week with recheck on BMP to monitor potassium level. See orders for details. Time spent with patient: discharge greater than 30 minutes DVT Prophylaxis: SCD's Discharge Plan - Discharge Disposition Discharge Date: 01/13/17 Disposition: 01 Discharged Home, Self-Care *Condition: Improved Reason For Visit (Visit label in EMR): hypokalemia - Discharge Medications *Discharge Medications: New Spironolactone [Aldactone] 50 mg PO DAILY #30 tab Continue Potassium Chloride 20 meq PO TID Potassium Chloride 20 meq PO BID Metolazone [Zaroxolyn] 5 mg PO MOWEFR Furosemide [Lasix] 40 mg PO BID Acetaminophen [Acetaminophen Extra Strength] 1,000 mg PO Q6H PRN PRN Reason: Pain - Discharge Packet/Instructions *Diet: Low sodium (2000mg a day of less) *Activity: As tolerated *Pain Management/Treatment: Continue Tylenol as needed for discomfort *Wound Care: n/a *Expected Signs/Symptoms: Improvement of potassium *Notify Physician if: Temp >100.4. Leg cramps *During Business Hours Contact: PCP *After Business Hours Contact: PCP *Pending Lab/Results: No Pending Lab - Referrals/Follow Up *Referrals/Follow Up: Shannon Mathew [Other] (F/U within 1 week - check BMP secondary to hypokalemia ) - Patient Handouts Patient Handouts: Hypokalemia (GEN) - Dismissal Complete Discharge Instructions are:: Complete Attestation Narriative - Attestation Attestation Narrative: 01/13/17 18:10 I have independently interviewed and examined patient prior to discharge. See my progress note from today for details. Medically stable for discharge to home.
[2017-01-14] MEDS ORDERED: SPIRONOLACTONE 50 MG TABLET PO ONE (10:00)
== END 2017-01-13 18:45 | disposition home or self-care (01) ==
LOC: ED 14:33 → MED 14:33
PROVIDERS: ADMIT Hospitalist; ATTEND Hospitalist